=== PATIENT | female | born 1955 | race Caucasian/White ===

== ENCOUNTER 2017-10-05 09:34 | Emergency (ER) | payer MEDICARE ==
[~2017-10-05] VITALS: Ht 162.6 cm; Wt 52.2 kg
[~2017-10-05 09:34] MED LIST: AMIT50; AMIT75 PO; Amoxicillin500 MG PO; Bactrim Ds Tab1 EACH PO; CEPH250A PO; CEPH500 PO; DOCEPIN; GABA100; GABA800 PO; IBUP100S; IBUP800 PO; OXYACE5T PO; OXYC1TAB11 PO; OXYC5; Pyridium100 MG PO; SULTRIDS PO; Triamcinolone A15 G3 TOP; Vanadom350 MG PO
[2017-10-05 11:17] LABS: BASOPHILS ABSOLUTE AUTO 0.06 K/mm3 (0.00-0.23); BASOPHILS PERCENT AUTO 1 % (0-2); EOSINOPHILS ABSOLUTE AUTO 0.28 K/mm3 (0.00-0.68); EOSINOPHILS PERCENT AUTO 5 % (0-6); Hematocrit 34.7 % (33.0-51.0); IMMATURE GRAN ABSOLUTE AUTO 0.01 K/mm3 (0.00-0.10); IMMATURE GRAN PERCENT AUTO 0 % (0-1); LYMPHOCYTES ABSOLUTE AUTO 0.96 K/mm3 (0.84-5.20); LYMPHOCYTES PERCENT AUTO 15 % (21-46); MONOCYTES ABSOLUTE AUTO 0.44 K/mm3 (0.16-1.47); MONOCYTES PERCENT AUTO 7 % (4-13); Mean Corpuscular HGB 30.4 pg (26.0-34.0); Mean Corpuscular HGB Conc 34.6 g/dL (31.5-36.5); Mean Corpuscular Volume 88 fL (80-100); Mean Platelet Volume 8.1 fL (9.1-12.4); NEUTROPHILS ABSOLUTE AUTO 4.51 K/mm3 (1.96-9.15); NEUTROPHILS PERCENT AUTO 72 % (41-73); Platelet Count 275 K/mm3 (150-400); RDW Standard Deviation 38.4 fL (35.1-46.3); Red Blood Cell Count 3.95 M/mm3 (3.80-5.20); White Blood Cell Count 6.26 K/mm3 (4.00-11.30)
[2017-10-05 11:41] LABS: Alanine Aminotransfer (ALT/SGP 29 U/L (12-78); Albumin, Blood 3.9 g/dL (3.4-5.0); Albumin/Globulin Ratio 1.1 (0.8-1.8); Alk Phos 112 U/L (50-136); Anion Gap 9 mmol/L (6-16); Aspartate Aminotrans (AST/SGOT 22 U/L (12-37); Bilirubin, Total 0.3 mg/dL (0.1-1.0); Blood Urea Nitrogen 6 mg/dL (8-24); Bun/Creatinine Ratio 10.9 (12.0-20.0); CO2, Blood 23 mmol/L (21-32); Calcium, Blood 8.9 mg/dL (8.5-10.1); Chloride, Blood 101 mmol/L (98-108); Creatinine, Blood 0.55 mg/dL (0.40-1.00); Globulin, Blood 3.5 g/dL (2.2-4.0); Glomerular Filtration Rate >60 (60-); Glucose, Blood 81 mg/dL (70-99); Potassium, Blood 3.7 mmol/L (3.5-5.5); Sodium, Blood 133 mmol/L (136-145); Total Protein, Blood 7.4 g/dL (6.4-8.2); Troponin I <0.015 ng/mL (0.000-0.040)
[2017-10-05] MEDS ORDERED: PRED20 PO (12:00)
[2017-10-05] MEDS ORDERED: ALBU90OI INH (12:00)
== END 2017-10-05 12:14 | disposition home or self-care (01) ==
LOC: ER 09:34
PROVIDERS: Physician Assistant
DX: J44.1 Chronic obstructive pulmonary disease with (acute) exacerbation (principal); Z79.899 Other long term (current) drug therapy
CPT/HCPCS: 36415; 71046; 80053; 83880; 84484; 85025; 93005; 93010; 99284-25

== ENCOUNTER → 2019-04-05 | Day surgery (SDC) | payer OTHER ==
[~2019-04-05] MED LIST changes: +ALBU90OI INH; +PRED20 PO
[2019-04-05 11:19] LABS: Performing Lab VERACYTE; Test Name FNA
== END ==
LOC: US 03-26 08:00
PROVIDERS: Nurse Practitioner Women's Health
DX: E04.1 Nontoxic single thyroid nodule (principal)
CPT/HCPCS: 10005

== ENCOUNTER 2019-06-25 09:42 | Day surgery (SDC) | payer OTHER ==
[~2019-06-25] VITALS: Ht 162.6 cm; Wt 59.0 kg
--- NOTE | 2019-06-25 10:58 | NUR ---
Ambulatory in Day Surgery Surgical site prepped with 2% Chlorhexidine cloth wipe. History, Chart, Medications and Allergies reviewed before start of procedure.Lungs clear T/O to Auscultation. Patient confirms NPO status and agrees with scheduled surgery. Patient States Post-Procedure ride home has been arranged.
--- NOTE | 2019-06-25 14:12 | NUR ---
"DAY SURGERY RN | DISCHARGE VSS. A/O. DENIES PAIN AND NAUSEA. SITE C/D/I. GOOD CIRCULATION TO EXTREMITIES. DISCHARGE INSTRUCTIONS AND RX GIVEN TO PATIENT. TAKEN IN WHEELCHAIR TO FRONT ENTRANCE BY THIS RN. DAUGHTER IS RIDE HOME AND SIGNED DISCHARGE PAPER. NO ISSUES."
== END 2019-06-25 23:05 | disposition home or self-care (01) ==
LOC: ORSCMMR 09:42 → ORD 11:00 → ORSCMMR 11:00
PROVIDERS: Podiatrist Foot & Ankle Surgery
PROC: 0JCR0ZZ Extirpation of Matter from Left Foot Subcutaneous Tissue and Fascia, Open Approach (ICD-10-PCS; principal; 2019-06-25 12:30)
DX: S91.322D Laceration with foreign body, left foot, subsequent encounter (principal)
CPT/HCPCS: J0171; J0690; J2250; J2704; J3010; J7120

== ENCOUNTER 2020-06-09 07:26 | Day surgery (SDC) | payer OTHER ==
[~2020-06-09] VITALS: Ht 162.6 cm; Wt 64.0 kg
[~2020-06-09 07:26] MED LIST changes: +AMITRIPTYLINE100 M1 PO; +CLONAZEPAM0.5 MG PO; +ERYT.5TO RIGHTEYE
--- NOTE | 2020-06-09 09:26 | NUR ---
06/09/20 0925 Yanni Coronel EPI 0.15MG MIXED INTO MARCAINE 0.5% 30ML TO CONSTITUTE MARCAINE 0.5% W/EPI 1:200,000 FOR INJECTION BY SURGEON DURING PROCEDURE
--- NOTE | 2020-06-09 11:38 | NUR ---
06/09/20 1138 Radha Cohen V PT ASSISTED TO THE BATHEROOM TWICE; TRANSFERED WELL BOTH TIMES. PT REPORTS PAIN FOR WHICH SHE HAS BEEN MEDICATED FOR. PT TOLERATING PO NURISHMENTS. VSS.
== END 2020-06-09 12:01 | disposition home or self-care (01) ==
LOC: ORSCSDS 07:26
PROVIDERS: Podiatrist Foot & Ankle Surgery
PROC: 0SGH04Z Fusion of Right Tarsal Joint with Internal Fixation Device, Open Approach (ICD-10-PCS; principal; 2020-06-09 09:00)
PROC: 0SPH04Z Removal of Internal Fixation Device from Right Tarsal Joint, Open Approach (ICD-10-PCS; principal; 2020-06-09 09:00)
DX: M21.371 Foot drop, right foot (principal); M79.671 Pain in right foot; E78.5 Hyperlipidemia, unspecified; J44.9 Chronic obstructive pulmonary disease, unspecified; F41.8 Other specified anxiety disorders; Z79.899 Other long term (current) drug therapy
CPT/HCPCS: A9270; C1713; C1769; J0171; J0690; J1100; J1885; J2250; J2370; J2405; J2704; J3010; J7120

== ENCOUNTER 2021-10-30 06:03 | Day surgery (SDC) | payer OTHER ==
[~2021-10-30] VITALS: Ht 162.6 cm; Wt 64.0 kg
[~2021-10-30 06:03] MED LIST changes: +DULO60 PO; +TIZANIDINE HCL2 MG PO; +ZOLEDRONIC4 MG/5 ML IV
[2021-10-30] MEDS ORDERED: 1/2 NS 250ml250 ML (06:34)
[2021-10-30] MEDS ORDERED: Athenol325 MG PO (06:34)
[2021-10-30] MEDS ORDERED: Cyclobenzaprine5 MG PO (06:35)
--- NOTE | 2021-10-30 06:44 | NUR ---
Patient confirms NPO status and agrees with scheduled surgery. History, Chart, Medications and Allergies reviewed before start of procedure. Patient reports taking two chlorhexidine showers per Dr. Srinivasan' order. Lungs clear T/O to Auscultation.
--- NOTE | 2021-10-30 06:59 | NUR ---
NOZIN NASAL PROCESS TANK TENDER X3 AMPULES USED TO CLEAN NARES BILAT PER DR SALINAS' ORDER. KNEE HIGH GRACE HOSE AND CALF PAS APPLIED TO LLE.
--- NOTE | 2021-10-30 08:37 | NUR ---
10/30/21 0837 Laure Rock 1G STARTED IN PRE-OP @0720
--- NOTE | 2021-10-30 18:56 | NUR ---
SHIFT SUMMARY PT A&OX4, VSS/RA, ABDULLAHI PO, VOIDING WELL/BSC, AMB 1 PP MOD ASSIST(IMPULSIVE), GB/FWW, PAIN TREATED WITH TORADOL, TYLENOL AND OXY 10 MG. REPORT PROVIDED TO OMEGA PEREZ AND YANETH PEREZ.
[2021-10-31 04:52] LABS: BASOPHILS ABSOLUTE AUTO 0.03 K/mm3 (0.00-0.23); BASOPHILS PERCENT AUTO 0 % (0-2); EOSINOPHILS ABSOLUTE AUTO 0.06 K/mm3 (0.00-0.68); EOSINOPHILS PERCENT AUTO 1 % (0-6); Hematocrit 28.5 % (33.0-51.0); Hemoglobin 9.4 g/dL (11.5-16.0); IMMATURE GRAN ABSOLUTE AUTO 0.02 K/mm3 (0.00-0.10); IMMATURE GRAN PERCENT AUTO 0 % (0-1); LYMPHOCYTES ABSOLUTE AUTO 1.38 K/mm3 (0.84-5.20); LYMPHOCYTES PERCENT AUTO 17 % (21-46); MONOCYTES ABSOLUTE AUTO 0.71 K/mm3 (0.16-1.47); MONOCYTES PERCENT AUTO 9 % (4-13); Mean Corpuscular HGB 30.2 pg (26.0-34.0); Mean Corpuscular Volume 92 fL (80-100); Mean Platelet Volume 8.4 fL (9.1-12.4); NEUTROPHILS ABSOLUTE AUTO 6.03 K/mm3 (1.96-9.15); NEUTROPHILS PERCENT AUTO 73 % (41-73); Platelet Count 234 K/mm3 (150-400); RDW Coefficient Variation 12.1 % (11.7-14.2); RDW Standard Deviation 40.8 fL (35.1-46.3); Red Blood Cell Count 3.11 M/mm3 (3.80-5.20); White Blood Cell Count 8.23 K/mm3 (4.00-11.30)
[2021-10-31 05:11] LABS: Bun/Creatinine Ratio 17.8 (12.0-20.0); Calcium, Blood 8.5 mg/dL (8.5-10.1); Creatinine, Blood 0.68 mg/dL (0.40-1.00); Potassium, Blood 3.6 mmol/L (3.5-5.5)
--- NOTE | 2021-10-31 05:44 | NUR ---
SHIFT SUMMARY: PAIN WELL MANAGED T/O THE SHIFT. PT EATING, DRINKING, AND VOIDING. A&OX4. PT HAS SLIGHTLY UNSTEADY GAIT WITH AMBULATION. USED BSC FOR THE NIGHT. TONY WRAP, AQUACEL X1, AND POLAR PACK REMAIN IN PLACE ON RIGHT KNEE. CALL LIGHT REMAINS IN REACH.
[2021-10-31] MEDS ORDERED: Aspir 8181 MG PO (09:41)
--- NOTE | 2021-10-31 12:33 | NUR ---
DISCHARGE NOTE: PATIENT WAS EDUCATED ON DISCHARGE INSTRUCTIONS. SHE VERBALIZED UNDERSTANDING OF DISCHARGE INFORMATION WITH NO FURTHER QUESTIONS. IV WAS TAKEN OUT AND WNL. HARD PERSCRIPTIONS ARE IN HER DISCHARGE FOLDER. PAIN IS MANAGED WITH PO PAIN MEDICATIONS. RIGHT KNEE HAS AN AQUACEL AND TONY WRAP THAT ARE C/D/I. DENIES NUMBNESS AND TINGLING. CAN MOVE FINGERS AND TOES. SHE IS A SBA WITH FWW AND GAIT BELT. PATIENT IS DRESSED AND HAS ITEMS IN THE ROOM GATHERED. SHE IS TOLERATING PO INTAKE AND IS VOIDING. PATIENT WILL BE WHEELCHAIRED OUT TO HER DAUGHTERS CAR WHEN SHE ARRIVES TO BE TAKEN HOME. PATIENTS DAUGHTER WILL BE ARRIVING AFTER NOON.
--- NOTE | 2021-10-31 14:17 | NUR ---
PATIENTS DAUGHTER ARRIVED. THIS NURSE AND ORTHO COORDINATOR EDUCATED DAUGHTER ON THE IMPORTANCE OF WATCHING HER AND MAKING SURE PATIENT IS SAFE AT HOME AND TO LIMIT PAIN MEDICATIONS. DAUGHTER UNDERSTOOD AND WAS GIVEN THE PAPER DISCHARGE INSTRUCTIONS WELL PHYSICAL THERAPY INSTRUCTIONS. DAUGHTER VERBALIZED UNDERSTANDING OF INSTRUCTIONS. PATIENT HAS PERSONAL ITEMS IN THE ROOM GATHERED AND WAS DRESSED. PATIENT WAS WHEELCHAIRED DOWN TO HER DAUGHTERS CAR TO BE TAKEN HOME.
== END 2021-10-31 14:24 | disposition home or self-care (01) ==
LOC: ORSCMMR 06:03 → ORD 07:30 → ORSCMMR 07:30 → SURS 12:40 → ORSCMMR 10-31 14:24
PROVIDERS: Orthopaedic Surgery
PROC: 0SRC0J9 Replacement of Right Knee Joint with Synthetic Substitute, Cemented, Open Approach (ICD-10-PCS; principal; 2021-10-30 07:30)
DX: M17.11 Unilateral primary osteoarthritis, right knee (principal); J44.9 Chronic obstructive pulmonary disease, unspecified; Z79.899 Other long term (current) drug therapy; F41.8 Other specified anxiety disorders
CPT/HCPCS: 36415; 73560-RT; 80048; 85025; 97110; 97116; 97162; 97530; A9270; C1713; C1776; J0171; J0690; J0735; J1100; J1885; J2250; J2405; J2704; J2795; J3010; J3370; J7120